=== PATIENT | female | born 1970 | race Caucasian/White ===

== ENCOUNTER → 2016-11-03 | Day surgery (SDC) | payer OTHER ==
[2016-11-02 09:29] LABS: HCT 40.1 % (37.0-47.0); HGB 13.2 g/dl (12.5-16.0); MCHC 32.9 g/dL (32.0-36.0); MCV 75.9 fL (78.0-100.0); MPV 9.2 fL (6.0-9.5); RBC 5.28 M/uL (4.20-5.40); RDW 14.5 % (11.5-14.0); WBC 9.9 K/uL (4.0-10.5)
[2016-11-02 09:51] LABS: ALBUMIN 3.9 g/dL (3.5-5.0); BILIRUBIN - TOTAL 0.5 mg/dL (0.1-1.0); CREATININE 0.7 mg/dL (0.5-1.0); GLOBULIN (CALCULATION) 3.6 g/dL (2.2-4.2); POTASSIUM 4.3 mmol/L (3.5-5.1); TOTAL PROTEIN 7.5 g/dL (6.4-8.3)
[~2016-11-03] MED LIST: GLUCOPHAGE1000 MG PO; GLUCOTROL10 MG PO; HUMALOG; JANUVIA50 MG PO; LACTINEX1 EACH PO; LANTUS **100 UNITS/ SC; LEVAQUIN500 MG PO; ZESTRIL5 MG PO
== END | disposition home or self-care (01) ==
LOC: FAS 07:39
PROVIDERS: Orthopaedic Surgery
DX: M75.01 Adhesive capsulitis of right shoulder (principal); M75.41 Impingement syndrome of right shoulder; M19.011 Primary osteoarthritis, right shoulder; S43.431A Superior glenoid labrum lesion of right shoulder, initial encounter; I10 Essential (primary) hypertension; I82.409 Acute embolism and thrombosis of unspecified deep veins of unspecified lower extremity; E11.40 Type 2 diabetes mellitus with diabetic neuropathy, unspecified; Z90.49 Acquired absence of other specified parts of digestive tract; Z79.4 Long term (current) use of insulin; Z79.01 Long term (current) use of anticoagulants; Z79.899 Other long term (current) drug therapy; Z98.890 Other specified postprocedural states
CPT/HCPCS: 36415; 71020; 80053; 84703; 93005; J1100; J1170; J1885; J2405; J2704; J2710; J2795; J3010; J3370

== ENCOUNTER 2021-06-19 15:43 | Inpatient (IN) | payer MEDICARE ==
[~2021-06-19] VITALS: Ht 99.1 cm; Wt 145.0 kg
[~2021-06-19 15:43] MED LIST changes: +ACCU-CHEK GUID1 EAC3 SC; +ACCU-CHEK GUID1 EACH XX; +AMOXICILLIN500 MG PO; +DESYREL50 MG PO; +ELAVIL25 MG PO; +GABAPENTIN800 MG PO; +GLIPIZIDE 5 MG (5 MG PO; -HUMALOG; +HUMALOG SC; +HYDROCODON-ACE1 EAC2 PO; +LISINOPRIL5 MG PO; +MEDROL 4MG DOSEP4 MG PO; +MONTELUKAST SOD10 MG PO; +TIZANIDINE HCL4 MG PO; +TRESIBA FL100 UNIT/1 SC; +VITAMIN D5000 UNI1 PO; +ZOCOR40 MG PO; +ZOFRAN4 MG PO
[2021-06-19 17:10] LABS: BASOPHIL 0.7 % (0-2); EOSINOPHIL 3.1 % (0-5); HCT 42.6 % (37.0-47.0); HGB 13.6 g/dl (12.5-16.0); LYMPHOCYTE 21.4 % (15-48); MCH 26.6 pg (25.0-31.0); MCHC 31.9 g/dL (32.0-36.0); MCV 83.4 fL (78.0-100.0); MONOCYTE 6.7 % (0-12); MPV 9.3 fL (6.0-9.5); NEUTROPHIL 66.9 % (41-80); NRBC 0; PLT 174 K/uL (150-400); RBC 5.11 M/uL (4.20-5.40); RDW 13.2 % (11.5-14.0); WBC 6.8 K/uL (4.0-10.5)
[2021-06-19 17:22] LABS: INR 1.07 (0.9-1.2); PROTHROMBIN TIME 13.3 SECONDS (11.8-13.4); PTT 30.2 SECONDS (24.4-34.7)
[2021-06-19 17:33] LABS: ALBUMIN 3.5 g/dL (3.4-5.0); BILIRUBIN - TOTAL 0.6 mg/dL (0.2-1.0); BUN/CREAT RATIO (CALC) 18.3 RATIO; CREATININE 0.71 mg/dL (0.51-0.95); POTASSIUM 4.9 mmol/L (3.5-5.1); TOTAL PROTEIN 7.5 g/dL (6.4-8.2)
[2021-06-19 18:06] LABS: CKMB 1.4 ng/mL (0.0-3.6)
[2021-06-20] MEDS ORDERED: HUMULIN R500 UNIT/2 SC (00:56)
[2021-06-20] MEDS ORDERED: FLUTICASONE PRO16 GM (00:58)
[2021-06-20] MEDS ORDERED: LASIX40 MG PO (01:06)
[2021-06-20 04:44] LABS: BILIRUBIN NEGATIVE (NEGATIVE); BLOOD TRACE-INTACT Ery/uL (NEGATIVE); CLARITY CLEAR (CLEAR); COLOR YELLOW (YELLOW); GLUCOSE (U) TRACE mg/dL (NORMAL); LEUKOCYTES NEGATIVE Leu/uL (NEGATIVE); NITRITE NEGATIVE (NEGATIVE); PROTEIN TRACE (LOW) mg/dL (NEGATIVE); SPECIFIC GRAVITY 1.025 (1.001-1.030); UROBILINOGEN 0.2 mg/dL (0.2-1.0); pH 5.5 (5.0-9.0)
[2021-06-20 04:55] LABS: URINARY WBC RARE
[2021-06-20 04:56] LABS: AMORPHOUS URATES CRYSTALS MODERATE; MUCOUS MODERATE; SQUAMOUS EPITHELIAL CELLS RARE
[2021-06-20 05:31] LABS: BUN/CREAT RATIO (CALC) 18.4 RATIO; CREATININE 0.76 mg/dL (0.51-0.95); MAGNESIUM 1.7 mg/dL (1.8-2.4); POTASSIUM 4.2 mmol/L (3.5-5.1)
[2021-06-21 06:47] LABS: BUN/CREAT RATIO (CALC) 17.6 RATIO; CREATININE 0.91 mg/dL (0.51-0.95); MAGNESIUM 1.6 mg/dL (1.8-2.4); POTASSIUM 3.9 mmol/L (3.5-5.1)
[2021-06-22 07:50] LABS: BUN/CREAT RATIO (CALC) 19.8 RATIO; CREATININE 1.01 mg/dL (0.51-0.95); POTASSIUM 4.2 mmol/L (3.5-5.1)
== END 2021-06-22 12:52 | disposition other institution (70) | DRG 303 ==
LOC: FER 15:43 → FICU 18:11 → FMS 18:11 → FICU 18:11 → FMS 06-21 08:11
PROVIDERS: Emergency Medicine; Hospitalist; Internal Medicine Cardiovascular Disease; ADMIT Allergy & Immunology Allergy
DX: I25.10 Atherosclerotic heart disease of native coronary artery without angina pectoris (principal); Z68.42 Body mass index [BMI] 45.0-49.9, adult; E11.51 Type 2 diabetes mellitus with diabetic peripheral angiopathy without gangrene; Z20.822 Contact with and (suspected) exposure to COVID-19; E11.649 Type 2 diabetes mellitus with hypoglycemia without coma; E11.40 Type 2 diabetes mellitus with diabetic neuropathy, unspecified; J11.1 Influenza due to unidentified influenza virus with other respiratory manifestations; I10 Essential (primary) hypertension; E78.5 Hyperlipidemia, unspecified; E66.01 Morbid (severe) obesity due to excess calories; G51.0 Bell's palsy; Z79.4 Long term (current) use of insulin; Z79.82 Long term (current) use of aspirin; Z79.899 Other long term (current) drug therapy; Z89.512 Acquired absence of left leg below knee; Z89.511 Acquired absence of right leg below knee; Z90.49 Acquired absence of other specified parts of digestive tract; Z98.890 Other specified postprocedural states
CPT/HCPCS: 36415; 71045; 80048; 80053; 80061; 81001; 82553; 82962; 83036; 83735; 83880; 84484; 85025; 85379; 85610; 85730; 93005; G0378; J0360; J1650; J2270; J3475; J7030; U0002